=== PATIENT | female | born 1950 | race Caucasian/White ===

== ENCOUNTER 2019-04-01 15:37 | Outpatient (REF) | payer OTHER, SELFPAY ==
[2019-04-01 20:49] LABS: BUN 14 mg/dL (7-18); CREATININE 0.76 mg/dL (0.55-1.02); Calcium 8.9 mg/dL (8.5-10.1); Chloride 103 mmol/L (98-107); Glucose 78 mg/dL (70-100); Potassium 4.3 mmol/L (3.5-5.1); Sodium 139 mmol/L (136-145)
== END 2019-04-01 15:57 ==
LOC: NCHCN 15:37
PROVIDERS: PCP Family Medicine; Visit Provider Internal Medicine
DX: E78.5 Hyperlipidemia, unspecified (principal); M81.0 Age-related osteoporosis without current pathological fracture
CPT/HCPCS: 80048

== ENCOUNTER 2020-04-18 14:16 | Outpatient (REF) | payer OTHER, SELFPAY ==
[2020-04-18 20:40] LABS: Calculated LDL 151 mg/dL (<100); Cholesterol 222 mg/dL (<200); HDL Cholesterol 50 mg/dL (40-60); TSH 2.58 uIU/mL (0.36-3.74); Triglyceride 109 mg/dL (<150)
== END 2020-04-18 14:36 ==
LOC: NCHCN 14:16
PROVIDERS: PCP Family Medicine; Visit Provider Internal Medicine
DX: E78.5 Hyperlipidemia, unspecified (principal); M48.061 Spinal stenosis, lumbar region without neurogenic claudication
CPT/HCPCS: 80061; 84443

== ENCOUNTER 2021-05-01 14:59 | Outpatient (REF) | payer OTHER, SELFPAY ==
[2021-05-01 20:42] LABS: Glucose 92 mg/dL (74-106); LDL CHOLESTEROL 111 mg/dL (<100)
== END 2021-05-01 15:00 | disposition home or self-care (01) ==
LOC: NCHCN 14:59
PROVIDERS: PCP Family Medicine; Visit Provider Internal Medicine
DX: E78.5 Hyperlipidemia, unspecified (principal); Z00.00 Encounter for general adult medical examination without abnormal findings
CPT/HCPCS: 82947; 83721

== ENCOUNTER 2022-05-18 21:24 | Outpatient (REF) | payer OTHER, SELFPAY ==
[2022-05-18 19:08] LABS: HCT 38.2 % (36.0-46.0); HGB 13.1 g/dL (11.2-15.7); MCH 32.8 pg (27.0-33.0); MCHC 34.3 % (32.0-36.0); MCV 96 fL (80-95); MPV 11.7 fL (8.0-11.0); Platelet Count 241 10^3/uL (130-400); RBC 3.99 10^6/uL (3.93-5.22); RDW 12.2 % (11.7-14.6); RDW-SD 43.3 fL; WBC 4.15 10^3/uL (4.4-10.8)
[2022-05-18 20:34] LABS: Anion Gap 7.7 mmol/L (3-11); BUN 14 mg/dL (7-18); CO2 27.3 mmol/L (21.0-32.0); CREATININE 0.7 mg/dL (0.55-1.02); Calcium 9.2 mg/dL (8.5-10.1); Calculated LDL 135 mg/dL (<100); Chloride 102 mmol/L (98-107); Cholesterol 211 mg/dL (<200); Estimated GFR 92.41 (mL/min/1.73m2); Glucose 76 mg/dL (74-106); HDL Cholesterol 57 mg/dL (40-60); Magnesium 1.9 mg/dL (1.8-2.4); Potassium 4.1 mmol/L (3.5-5.1); Sodium 137 mmol/L (136-145); TSH 3.12 uIU/mL (0.36-3.74); Triglyceride 96 mg/dL (<150)
== END 2022-05-18 21:25 | disposition home or self-care (01) ==
LOC: NCHCN 21:24
PROVIDERS: Visit Provider Internal Medicine
DX: E78.5 Hyperlipidemia, unspecified (principal); G25.2 Other specified forms of tremor; Z00.00 Encounter for general adult medical examination without abnormal findings
CPT/HCPCS: 80048; 80061; 85027; 83735; 84443

== ENCOUNTER 2023-11-13 15:32 | Outpatient (REF) | payer OTHER, SELFPAY ==
[2023-11-13 20:32] LABS: HCT 35.4 % (36.0-46.0); HGB 12.5 g/dL (11.2-15.7); MCH 33.8 pg (27.0-33.0); MCHC 35.3 % (32.0-36.0); MCV 96 fL (80-95); MPV 11.4 fL (8.0-11.0); Platelet Count 274 10^3/uL (130-400); RDW 12.5 % (11.7-14.6); RDW-SD 43.8 fL; WBC 3.61 10^3/uL (4.4-10.8)
[2023-11-13 20:57] LABS: Anion Gap 7.1 mmol/L (3-11); BUN 20 mg/dL (7-18); CO2 26.9 mmol/L (21.0-32.0); CREATININE 0.8 mg/dL (0.55-1.02); Calcium 9.2 mg/dL (8.5-10.1); Calculated LDL 155 mg/dL (<100); Chloride 103 mmol/L (98-107); Cholesterol 232 mg/dL (<200); Estimated GFR 77.75 (mL/min/1.73m2); Glucose 93 mg/dL (74-106); HDL Cholesterol 49 mg/dL (40-60); Potassium 5.7 mmol/L (3.5-5.1); Sodium 137 mmol/L (136-145); Triglyceride 140 mg/dL (<150)
== END 2023-11-13 15:33 | disposition home or self-care (01) ==
LOC: NCHCN 15:32
PROVIDERS: Visit Provider Internal Medicine
DX: E78.5 Hyperlipidemia, unspecified (principal); I63.9 Cerebral infarction, unspecified
CPT/HCPCS: 80048; 80061; 85027

== ENCOUNTER 2025-01-20 13:00 | Outpatient (REF) | payer MEDICARE, SELFPAY ==
[2025-01-20 19:56] LABS: ALT 41 U/L (14-59); AST 32 U/L (15-37); Albumin 4.3 g/dL (3.4-5.0); Alkaline Phosphatase 59 U/L (46-116); Anion Gap 5.7 mmol/L (3-11); BUN 16 mg/dL (7-18); Bilirubin, Total 0.6 mg/dL (0.2-1.0); CO2 29.3 mmol/L (21.0-32.0); CREATININE 0.7 mg/dL (0.55-1.02); Calcium 9.8 mg/dL (8.5-10.1); Chloride 104 mmol/L (98-107); Glucose 97 mg/dL (74-106); Potassium 5.4 mmol/L (3.5-5.1); Sodium 139 mmol/L (136-145); TSH 2.71 uIU/mL (0.36-3.74)
== END 2025-01-20 13:01 | disposition home or self-care (01) ==
LOC: NCHCN 13:00
PROVIDERS: Visit Provider Internal Medicine
DX: E87.1 Hypo-osmolality and hyponatremia (principal)
CPT/HCPCS: 80053; 84443

== ENCOUNTER 2025-06-01 18:11 | Outpatient (REF) | payer MEDICARE, SELFPAY ==
[2025-06-01 20:07] LABS: Abs Immature Grans 0.01 10^3/uL (0.0-0.06); HCT 34.9 % (36.0-46.0); HGB 12.0 g/dL (11.2-15.7); Immature Grans % 0.2 %; MCH 32.7 pg (27.0-33.0); MCHC 34.4 % (32.0-36.0); MCV 95 fL (80-95); MPV 11.5 fL (8.0-11.0); Platelet Count 278 10^3/uL (130-400); RBC 3.67 10^6/uL (3.93-5.22); RDW 12.3 % (11.7-14.6); RDW-SD 43.0 fL; WBC 5.23 10^3/uL (4.4-10.8)
[2025-06-01 20:30] LABS: Ferritin 201 ng/mL (8-252); TSH (W/Ref FT4) 3.24 uIU/mL (0.36-3.74)
[2025-06-01 20:33] LABS: Hemoglobin A1C 5.3 % (<5.7)
== END 2025-06-01 18:12 | disposition home or self-care (01) ==
LOC: NCHCN 18:11
PROVIDERS: Visit Provider Nurse Practitioner Family
DX: D64.9 Anemia, unspecified (principal); Z13.1 Encounter for screening for diabetes mellitus; Z00.00 Encounter for general adult medical examination without abnormal findings
CPT/HCPCS: 82728; 83036; 84443; 85025